=== PATIENT | male | born 1955 | race Caucasian/White ===

== ENCOUNTER 2016-08-09 01:41 | Inpatient (IN) | payer OTHER ==
[~2016-08-09] VITALS: Ht 175.3 cm; Wt 78.9 kg
[2016-08-09 04:00] VITALS: BP 145/76; BP 146/62
--- NOTE | 2016-08-09 05:31 | NUR ---
RECEIVED FROM ER. ADMIT TO DR. GARRISON FOR CHRONIC BACK PAIN, IV-R.AC-SL, BED IS LOW, SRX2, CALL LIGHT IN REACH
[2016-08-09 06:01] VITALS: BP 145/76; Ht 175.3 cm; Wt 78.9 kg
--- NOTE | 2016-08-09 06:13 | NUR ---
SPRING SETTER ASSESSMENT COMPLETED. DILAUDID EDITOR SOUND USAGE EXPLAINED TO PT AND FAMILY BY A KOKI RN. PT STATED UNDERSTANDING. FAMILY AT BEDSIDE. SR UP X2, CALL LIGHT WITHIN REACH.
--- NOTE | 2016-08-09 07:25 | NUR ---
RECEIVED PT REPORT. WILL CONTINUE PLAN OF CARE. NO OTHER NEEDS AT THIS TME. WILL CONTINUE TO [facility].
[2016-08-09 08:16] VITALS: BP 136/77
--- NOTE | 2016-08-09 09:49 | NUR ---
PT IS ALERT. ASSESSMENT DONE PER FLOWSHEET. NO OTHER NEEDS AT THIS TIME. WILL CONTINUE TO [facility].
[2016-08-09 11:37] VITALS: BP 125/77
--- NOTE | 2016-08-09 13:57 | NUR ---
NO SS OF DISTRESS AT THIS TIME. WILL CONTINUE TO MONITOR.
[2016-08-09 15:53] VITALS: BP 155/73
--- NOTE | 2016-08-09 16:37 | NUR ---
Patient Name: MARIAM ECHOLS Admission Status: ER Accout number: [id number] Admission Date: 08-09-2016 : 1955 Admission Diagnosis: Attending: BONIFACIO Current LOS: 1 Anticipated DC Date: Planned Disposition: Home Primary Insurance: [employer] Discharge Planning Comments: * Is the patient Alert and Oriented? Yes 0 * How many steps to enter\exit or inside your home? 5 0 * PCP [facility] * Pharmacy [facility] [address] 0 * Preadmission Environment Home with Family 0 * ADLs Independent 0 * Equipment [facility] 0 * Other Equipment [facility] - MEDICAL EQUIPMENT PROVIDER PREFERENCE 0 * List name and contact numbers for known caregivers / representatives who currently or will assist patient after discharge: NICHO ECHOLS, SPOUSE, 0 * Community resources currently utilized [place] [facility] 0 * Please name any agencies selected above. [facility], [facility]. 0 * Additional services required to return to the preadmission environment? No 0 * Can the patient safely return to the preadmission environment? Yes 0 * Has this patient been hospitalized within the prior 30 days at any hospital? No 0 CM MET WITH PT AND SPOUSE IN ROOM TO DISCUSS DISCHARGE PLANNING AND NEEDS. PT REPORTS LIVING AT HOME INDEPENDENTLY WITH SPOUSE. PT HAS NO MEDICAL EQUIPMENT THAT HE USES BUT HAS A WALKER AND CANE IF NEEDED. PT PREFERS TO USE [facility] FOR ANY ADDITIONAL MEDICAL EQUIPMENT IF NEEDED. PT HAS NO OUTSIDE SERVICES ASSISTING IN THE HOME. CM DISCUSSED AVAILABILITY OF HOME HEALTH, REHAB SERVICES AND MEDICAL EQUIPMENT. PT DENIES DISCHARGE NEEDS, PT'S SPOUSE WILL PICK PT UP FOR DISCHARGE HOME. PT REPORTS HIS SPOUSE [facility] THAT [facility] OF [facility] BEING IN THE HOSPITAL; PT'S SPOUSE REPORTS SPEAKING TO A WOMAN IN THE ER THAT TOLD HER THAT THE [facility] HAD BEEN NOTIFIED. PT REPORTS WILLINGNESS TO TRANSFER TO [place]. CM CALLED [place] EXPEDITOR, SPOKE TO YAW AT [phone], WHO ADVISED THAT [facility] WAS CON[facility] MORNING AND NO BED IS AVAILABLE NOW. CM WAS ADVISED TO CALL DAILY TO CHECK FOR BED AVAILABLITY. CM TO FOLLOW AND ASSIST NEEDED. Coach Wirer: Dewayne Fragoso
--- NOTE | 2016-08-09 19:31 | NUR ---
PT IS RESTING IN BED WITH EYES OPEN. ALERT AND ORIENTED X 3. SPOUSE JUST LEFT TO GO HOME FOR THE NIGHT. PT DENIES ACUTE PAIN OR DISCOMFORT AT THIS TIME. STATES: "THE PAIN MEDICINE HAS FINALLY KICKED IN, AND IM FEELING PRETTY GOOD." IV INFUSING TO RIGHT AC WITHOUT DIFFICULTY. NO REDNESS OR EDEMA NOTED AT THE INSERTION SITE. SR'S ARE UP X 2 IN BED. CALL LIGHT AND BEDSIDE TABLE ARE WITHIN EASY REACH.
[2016-08-09 20:00] VITALS: BP 158/78
--- NOTE | 2016-08-09 22:33 | NUR ---
PT IS RESTING IN BED READING A MAGAZINE. NO NEEDS VOICED.
--- NOTE | 2016-08-09 23:57 | NUR ---
EYES CLOSED, RESP UNLAB EASILY AROUSED, DENIES NEEDS. MANAGER MBA MORPHINE AT BEDSIDE FOR PAIN CONTROL. C/L IN REACH.
[2016-08-10] VITALS: BP 130/67
--- NOTE | 2016-08-10 01:49 | NUR ---
PT RESTING IN BED WITH EYES OPEN. PT INC. OF BLADDER. ENTIRE BED CHANGED. PT GIVEN SPONGE BATH BY HIS .
--- NOTE | 2016-08-10 03:36 | NUR ---
PT RESTING IN BED WITH EYES CLOSED.
--- NOTE | 2016-08-10 06:39 | NUR ---
PT IS RESTING IN BED WITH EYES OPEN. NO NEEDS VOICED.
--- NOTE | 2016-08-10 07:08 | NUR ---
RECEIVED PT REPORT. NO OTHER NEEDS AT THIS TIME. WILL CONTINUE PLAN OF CARE.
[2016-08-10 07:46] VITALS: BP 152/80
--- NOTE | 2016-08-10 11:24 | NUR ---
PT IS ALERT. NO SS OF DISTRESS WILL CONTINUE TO [facility]. ASSESSMENT DONE PER FLOWSHEET.
[2016-08-10 11:36] VITALS: BP 166/90
--- NOTE | 2016-08-10 13:34 | NUR ---
Patient Name: MARIAM ECHOLS Encounter No: [id number] : 1955 Primary Insurance: [employer] Anticipated DC Date: Planned Disposition: Home DCP follow-up note: CM CALLED [facility] EX[facility], SPOKE TO YAW AT [phone], WHO ADVISED THAT [facility] AND NO BED IS AVAILABLE NOW. CM WAS ADVISED TO CALL DAILY TO CHECK FOR BED AVAILABLITY. CM TO FOLLOW AND ASSIST NEEDED. Site Coordinator: Dewanye Fragoso
[2016-08-10 15:18] VITALS: BP 165/81
--- NOTE | 2016-08-10 19:37 | NUR ---
ASSESSMENT COMPLETE, A&O, IV TO RIGHT AC WITH NS INFUSING AT KVO, SITE CLEAN AND DRY, PT DENIES PAIN OR NEEDS, BED LOW, CL IN REACH, WILL CONT TO MONITOR.
[2016-08-10 20:02] VITALS: BP 160/85
--- NOTE | 2016-08-10 21:15 | NUR ---
HS MEDS GIVEN, NORCO 1 TAB GIVEN AT PT REQUEST FOR C/O PAIN TO BACK, RATES PAIN AT A 9 ON PAIN SCALE. BED LOW, CL IN REACH, WILL CONT TO MONITOR.
[2016-08-11 01:39] VITALS: BP 140/72
--- NOTE | 2016-08-11 03:25 | NUR ---
RESTING WITH EYES CLOSED, RESPERATIONS EVEN, NO S/S DISTRESS NOTED.
--- NOTE | 2016-08-11 04:11 | NUR ---
PT LAYING IN BED NO DISTRESS OBSERVED WILL MONITOR
[2016-08-11 04:37] VITALS: BP 123/69
[2016-08-11 08:00] VITALS: BP 154/79
[2016-08-11] MEDS ORDERED: MOBIC7.5 MG PO (08:29)
[2016-08-11] MEDS ORDERED: BACLOFEN10 MG PO (08:29)
[2016-08-11] MEDS ORDERED: HYDROCODON-ACE1 EAC7 PO (08:29)
[2016-08-11 08:36] LABS: APTT 26.8 SECONDS (22.8-39.4); INR 1.09 (0.85-1.17)
--- NOTE | 2016-08-11 09:43 | NUR ---
PT IS ALERT. ASSESSMENT DONE PER FLOWSHEET. DC TEACHING COMPLETE .NOOTHER NEEDSS AT THIS TIME. WILL CONTINUE TO [facility].
--- NOTE | 2016-08-11 13:42 | NUR ---
Patient Name: MARIAM ECHOLS Encounter No: [id number] : 1955 Primary Insurance: [employer] Anticipated DC Date: 08-11-2016 Planned Disposition: Home DCP follow-up note: CM CALLED [place] EXPEDITOR AT [phone], ADVISED PT HAD DISCHARGED HOME TODAY AND TO REMOVE PT FROM TRANSFER LIST. CM ADVISED THAT [facility] NOW [facility]. PT DISCHARGED HOME WITH ASSISTANCE OF SPOUSE. Director Of Web Marketing: Dewayne Fragoso
== END 2016-08-11 09:48 | disposition home or self-care (01) | DRG 552 ==
LOC: D.ER 01:41 → D.M2 04:39
PROVIDERS: Specialist; ADMIT Family Medicine
DX: M51.36 Other intervertebral disc degeneration, lumbar region (principal); Z87.891 Personal history of nicotine dependence; M51.26 Other intervertebral disc displacement, lumbar region